=== PATIENT | male | born 1975 | race Caucasian/White ===

== ENCOUNTER 2019-06-10 13:16 | Emergency (ER) | payer MEDICAID ==
[~2019-06-10] VITALS: Ht 162.6 cm; Wt 64.0 kg
[2019-06-10] MEDS ORDERED: KETOROLAC 60MG/2ML VIAL IM STA (14:48)
[2019-06-10] MEDS ORDERED: LIDOCAINE HCL/PF 1% 10 MG/ML 5ML VIAL IJ ONE (15:00)
[2019-06-10] MEDS ORDERED: BACITRACIN ZINC OINT UDPKT TOP ONE (15:00)
[2019-06-10 16:42] VITALS: BP 142/90
== END 2019-06-10 16:48 | disposition home or self-care (01) ==
LOC: ER 13:41
DX: S61.210A Laceration without foreign body of right index finger without damage to nail, initial encounter (principal); W26.8XXA Contact with other sharp object(s), not elsewhere classified, initial encounter; Y93.89 Activity, other specified; Y92.89 Other specified places as the place of occurrence of the external cause; Y99.8 Other external cause status; Z98.890 Other specified postprocedural states
CPT/HCPCS: 12001; 73140; 96372; 99283; J1885; J3490